=== PATIENT | female | born 1960 | race Caucasian/White ===

== ENCOUNTER → 2016-12-30 | Outpatient (CLI) | payer OTHER | END | disposition home or self-care (01) | LOC: GMAB 09:28 | PROVIDERS: ATTEND Family Medicine | DX: E56.9 Vitamin deficiency, unspecified (principal); Z98.84 Bariatric surgery status ==

== ENCOUNTER → 2017-07-14 | Outpatient (CLI) | payer OTHER | END | disposition home or self-care (01) | LOC: GMAB 10:40 | PROVIDERS: ATTEND Family Medicine | DX: Z98.84 Bariatric surgery status (principal); E56.9 Vitamin deficiency, unspecified ==

== ENCOUNTER → 2018-03-04 | Outpatient (CLI) | payer OTHER | LOC: GMAB 12:16 | PROVIDERS: ATTEND Family Medicine | DX: Z00.01 Encounter for general adult medical examination with abnormal findings (principal) ==

== ENCOUNTER → 2018-04-24 | Outpatient (CLI) | payer OTHER | LOC: GMAJS 10:45 | PROVIDERS: ATTEND Physician Assistant | DX: N30.00 Acute cystitis without hematuria (principal) ==

== ENCOUNTER → 2018-09-10 | Outpatient (CLI) | payer OTHER | LOC: GMAE 09:04 | PROVIDERS: ATTEND Family Medicine | DX: Z00.01 Encounter for general adult medical examination with abnormal findings (principal); E55.9 Vitamin D deficiency, unspecified; E53.8 Deficiency of other specified B group vitamins; Z98.84 Bariatric surgery status ==

== ENCOUNTER → 2020-03-14 | Outpatient (CLI) | payer OTHER | LOC: GMAE 09:19 | PROVIDERS: ATTEND Family Medicine | DX: Z00.00 Encounter for general adult medical examination without abnormal findings (principal); E53.8 Deficiency of other specified B group vitamins; E55.9 Vitamin D deficiency, unspecified; E56.9 Vitamin deficiency, unspecified; Z98.84 Bariatric surgery status ==

== ENCOUNTER → 2020-12-12 | Outpatient (CLI) | payer OTHER ==
--- NOTE | 2020-12-12 15:26 | RAD ---
EXAM DESCRIPTION: Hip,Right 2 Views CLINICAL HISTORY: 60 years Female, PAIN IN RIGHT HIP COMPARISON: None. Findings: 2 views/radiographs Location: Right hip/pelvis No acute fracture or dislocation. Joint spaces are maintained. Soft tissues are unremarkable. IMPRESSION: No evidence of acute process in the right hip. Electronically signed by: Hesham Miles MD 12/12/2020 3:25 PM [facility]
== END ==
LOC: YCFC.O 10:15
PROVIDERS: ATTEND Family Medicine
DX: M25.551 Pain in right hip (principal)